=== PATIENT | male | born 1995 | race Caucasian/White ===

== ENCOUNTER 2017-04-30 13:24 | Emergency (ER) | payer BC, OTHER ==
[~2017-04-30] VITALS: Ht 180.3 cm; Wt 63.5 kg
[~2017-04-30 13:24] MED LIST: CPR250 PO
[2017-04-30 13:26] VITALS: TEMP 37; Ht 180.3 cm; Wt 63.5 kg
[2017-04-30] MEDS ORDERED: IBUPROFEN 200 MG TAB PO STA (13:47)
[2017-04-30] MEDS ORDERED: ACETAMINOPHEN 325 MG TAB PO STA (13:47)
--- NOTE | 2017-04-30 14:29 | DIAGNOSTIC IMAGING REPORT ---
CHEST ONE VIEW PORTABLE CLINICAL HISTORY: 21 years-old Male presenting with chest pain. TECHNIQUE: Portable upright AP view of the chest was obtained. COMPARISON: None. FINDINGS: Cardiomediastinal silhouette normal. Lungs and pleural spaces clear. Osseous structures and upper abdomen normal. IMPRESSION: 1. No acute cardiopulmonary disease. Electronically signed by: Alex Joaquin M.D. 04/30/2017 2:28 PM Dictated Date/Time: 04/30/2017 2:27 PM
--- NOTE | 2017-04-30 15:05 | EMERGENCY ROOM VISIT NOTE ---
History Report prepared by Mayelaibmaco: J Carlos Meyer Under the Supervision of: Dr. Marcelino Liz M.D. First contact with patient: 13:34 Chief Complaint: RESPIRATORY PROBLEMS Stated Complaint: CHEST PAIN, SOB History of Present Illness The patient is a 21 y/o white male who presents to the ED with c/o chest pain. Pain began several years ago, worsened within the past month. Primarily on the left side of chest. "Sharp", constant pain. Worsened with movement, improved with rest. Occasional pain radiation to his left arm. No recent injury. Works at [employer] with a lot of heavy lifting. Smokes about a pack a day. No drug use. No recent long travel. Denies nausea, vomiting, or diarrhea. NKDA. Source of History: patient Onset: A month ago Position: chest (primarily left) Quality: sharp Timing: constant Modifying Factors (Worsening): movement Modifying Factors (Relieving): rest Associated Symptoms: No nausea, No vomiting, No diarrhea Note: Positive: occasional pain radiation into left arm. Review of Systems See HPI for pertinent positives and negatives. A total of ten systems were reviewed and were otherwise negative. Past Medical & Surgical Medical Problems: (1) Bronchitis (2) No Known Active Medical Problems Surgical Problems: (1) Hx of tonsillectomy Family History No pertinent family history stated. Social History Smoking Status: Current Every Day Smoker Occupation Status: employed Current/Historical Medications No Active Prescriptions or Reported Meds Allergies Coded Allergies: No Known Allergies (Unverified , NONE, 04/30/17) Physical Exam Vital Signs Date Time Temp Pulse Resp B/P (MAP) Pulse Ox O2 Delivery O2 Flow Rate FiO2 04/30/17 15:24 76 18 124/73 97 04/30/17 13:26 37.0 91 18 125/84 98 Room Air Physical Exam GENERAL: Awake, alert, well-appearing, NAD HENT: Normocephalic, atraumatic. EYES: Normal conjunctiva. Sclera non-icteric. NECK: Supple. No nuchal rigidity. FROM. RESPIRATORY: CTAB, no rhonchi, wheezing, crackles CARDIAC: RRR, no MRG ABDOMEN: Soft, NTND, BS+ MSK: No LE edema. Reproducible left chest wall tenderness without ecchymosis, crepitus or erythema. NEURO: GCS 15, CN 2-12 intact, moves all 4s on command SKIN: No rash or jaundice noted. Medical Decision & Procedures ER Provider Diagnostic Interpretation: X-ray: Per my interpretation, radiologist review. CHEST ONE VIEW PORTABLE FINDINGS: Cardiomediastinal silhouette normal. Lungs and pleural spaces clear. Osseous structures and upper abdomen normal. IMPRESSION: 1. No acute cardiopulmonary disease. Electronically signed by: Alex Joaquin M.D. Medications Administered Medications (Trade) Dose Ordered Sig/Regulo Route Start Time Stop Time Status Last Admin Dose Admin Ibuprofen (Advil Tab) 400 mg NOW STAT PO 04/30/17 13:47 04/30/17 13:49 DC 04/30/17 13:58 400 MG Acetaminophen (Tylenol Tab) 650 mg NOW STAT PO 04/30/17 13:47 04/30/17 13:49 DC 04/30/17 13:58 650 MG ECG Indication: chest pain Rate (beats per minute): 66 Rhythm: sinus with SA Findings: RBBB (incomplete), other (Normal [place]/QRS intervals. RAD. No dropped beats. ) ED Course 1336: The patient was evaluated in room C10. A complete history and physical exam was performed. 1505: I reevaluated the patient. Discussed results and discharge instructions: he verbalized understanding and agreement. The patient is ready for discharge. Medical Decision The patient is a 21 y/o white male who presents to the ED with c/o chest pain. Differential diagnosis includes but is not limited to; costochondritis, MSK pain , PE, ACS, bronchitis. Patient EKG that did show a sinus arrhythmia but otherwise no other abnormalities. Patient was informed of this finding was told to follow up with his primary care physician. Patient's pain had improved. Patient was counseled on smoking cessation. Given patient's history was likely to be cardiac. Patient is PE RC negative. His pain is most likely related either MSK pain from his employment (bronchitis related to his smoking history as it has been for a long time. Patient is given strict follow-up, discharged comfortable cautions. Patient agrees with plan of care. Patient was discharged home. Impression Primary Impression: Bronchitis Additional Impression: Sinus arrhythmia seen on electrocardiogram Scribe Attestation The scribe's documentation has been prepared under my direction and personally reviewed by me in its entirety. I confirm that the note above accurately reflects all work, treatment, procedures, and medical decision making performed by me. Departure Information Dispostion Home / Self-Care Prescriptions No Active Prescriptions or Reported Meds Referrals No Doctor, Assigned (PCP) Patient Instructions ED Chest Wall Pain [facility] , ED Smoking Cessation, [facility] Additional Instructions Please follow up with her primary care physician for continued monitoring and care. Please return to the emergency department if worsening symptoms. Please review the discharge pack and information repeat smoking cessation tips. Problem Qualifiers
[2017-04-30 15:24] VITALS: BP 124/73; PULSE 76; O2SAT 97
== END 2017-04-30 15:27 | disposition home or self-care (01) ==
LOC: C.EDB 13:26 → C.EDC 15:27
DX: J40 Bronchitis, not specified as acute or chronic (principal); I49.8 Other specified cardiac arrhythmias; F17.210 Nicotine dependence, cigarettes, uncomplicated

== ENCOUNTER 2017-05-19 11:24 | Emergency (ER) | payer BC, OTHER ==
[~2017-05-19] VITALS: Ht 180.3 cm; Wt 66.4 kg
[2017-05-19 11:29] VITALS: TEMP 36.7; Ht 180.3 cm; Wt 66.4 kg
[2017-05-19 12:06] VITALS: O2SAT 98
--- NOTE | 2017-05-19 12:30 | DIAGNOSTIC IMAGING REPORT ---
CHEST ONE VIEW PORTABLE CLINICAL HISTORY: 21 years-old Male presenting with chest pain. TECHNIQUE: Portable upright AP view of the chest was obtained. COMPARISON: 04/30/2017. FINDINGS: Cardiomediastinal silhouette normal. Lungs and pleural spaces clear. Osseous structures normal. Upper abdomen normal. IMPRESSION: 1. No acute cardiopulmonary disease. Electronically signed by: Alex Joaquin M.D. 05/19/2017 12:28 PM Dictated Date/Time: 05/19/2017 12:27 PM
[2017-05-19 12:39] LABS: HEMATOCRIT 45.4 % (42-52); MEAN CELL VOLUME 90.6 fL (80-100); MEAN CORPUSCULAR HEMOGLOBIN 30.7 pg (25-34); MEAN CORPUSCULAR HGB CONC 33.9 g/dl (32-36); PLATELET COUNT 209 K/uL (130-400); RED BLOOD COUNT 5.01 M/uL (4.7-6.1); WHITE BLOOD COUNT 7.05 K/uL (4.8-10.8)
[2017-05-19 12:51] LABS: PARTIAL THROMBOPLASTIN RATIO 1.1; PROTHROMBIN TIME (PATIENT) 10.9 SECONDS (9.0-12.0)
[2017-05-19 13:08] LABS: BUN/CREATININE RATIO 9.7 (10-20); CALCIUM 8.7 mg/dl (8.5-10.1); CREATININE 1.1 mg/dl (0.60-1.40)
[2017-05-19 13:13] LABS: ALB/GLOB RATIO 1.4 (0.9-2); CKMB/CK RATIO 0.6 (0-3.0)
[2017-05-19] MEDS ORDERED: ATV/1 PO (13:42)
--- NOTE | 2017-05-19 13:43 | EMERGENCY ROOM VISIT NOTE ---
History First contact with patient: 13:09 Chief Complaint: CARDIAC ASSESSMENT Stated Complaint: CHEST PAIN;NUMBNESS IN LEFT ARM;SOB Nursing Triage Summary: Relates that he gets chest pain while at work. 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 Describes the chest pain as "someone taking a knife and stabbing it in my chest. It can last a few minutes or hours and it will just stop and go away." He relates that he coughs with the chest pain. He is a smoker and he relates that he has cut back to at the most "5 per day". He feels the pain goes away with rest and a lot of the pain goes with lieing down. Chest pain makes him short of breath. Nauseated with the events. Vomited on his way in to the ER. He relates that he had [employer] before arrival and he vomited it back up. History of Present Illness The patient is a 21 year old male who presents to the Emergency Room with complaints of chest pain. The patient states that he has had similar symptoms intermittently over the last several years. The patient states that the beginning of the month was the first time he was seen for it. The patient states that he develops pain in his chest. He states it is associated with shortness of breath and occasional numbness and tingling in his arm. He describes it as sharp and pressure-like. He states that his pain is 6/10 at its worst. He states that it lasts a few minutes to an hour. He states that it is resolved when he tries to relax. He states he has had some nausea and threw up today but denies any abdominal pain. He denies any personal history of cardiac disease. He states that his father has had heart trouble but it has been related to stress. He states he does have a history of anxiety. He denies any falls or injuries. He had an EKG and chest x-ray beginning of the month. Review of Systems A 10 system review of systems was completed with positives and pertinent negatives listed in the HPI. Past Medical/Surgical History Medical Problems: (1) Bronchitis (2) No Known Active Medical Problems Surgical Problems: (1) Hx of tonsillectomy Social History Smoking Status: Current Every Day Smoker Housing Status: lives with family Occupation Status: employed Current/Historical Medications Scheduled PRN Lorazepam (Ativan), 1 TAB PO Q8 PRN for Anxiety/Agitation Physical Exam Vital Signs Date Time Temp Pulse Resp B/P (MAP) Pulse Ox O2 Delivery O2 Flow Rate FiO2 05/19/17 14:10 58 20 127/79 99 05/19/17 13:18 66 20 129/72 98 Room Air 05/19/17 12:13 70 20 130/76 98 Room Air 05/19/17 12:06 98 Room Air 05/19/17 11:46 83 05/19/17 11:43 97 Room Air 05/19/17 11:29 36.7 86 16 137/84 96 Room Air Pain Rating (0-10): 5.0 Physical Exam VITALS: Vitals are noted on the nurse's note and reviewed by myself. Vital signs stable. GENERAL: This is a 21-year-old male, in no acute distress, nondiaphoretic, well- developed well-nourished. SKIN: The skin was without rashes, erythema, edema, or bruising. There is no tenting of the skin. Capillary reflex less than 2 seconds. HEAD: Normocephalic atraumatic. EARS: External auditory canals clear, tympanic membranes pearly serrano without erythema or effusion bilaterally. EYES: Pupils equal round and reactive to light and accommodation. Conjunctivae without injection, sclerae without icterus. Extraocular movements intact. NOSE: Patent, turbinates without inflammation or discharge. No sinus tenderness. MOUTH: Mucous membranes moist. Tonsils are not enlarged. Pharynx without erythema or exudate. Uvula midline. Airway patent. Tongue does not deviate. NECK: Supple without nuchal rigidity. No lymphadenopathy. No thyromegaly. Cervical spine is nontender. No JVD. HEART: Regular rate and rhythm without murmurs gallops or rubs. LUNGS: Clear to auscultation bilaterally without wheezes, rales or rhonchi. No retractions or accessory muscle use. ABDOMEN: Positive bowel sounds x 4. Soft, nontender, without masses or organomegaly. Singleton sign negative. MUSCULOSKELETAL: No muscle atrophy, erythema, or edema noted. Full range of motion in all extremities. Normal gait. Strength 5/5 throughout. NEURO: Patient was alert and oriented to person place and time. Medical Decision & Procedures ER Provider Diagnostic Interpretation: CHEST ONE VIEW PORTABLE CLINICAL HISTORY: 21 years-old Male presenting with chest pain. TECHNIQUE: Portable upright AP view of the chest was obtained. COMPARISON: 04/30/2017. FINDINGS: Cardiomediastinal silhouette normal. Lungs and pleural spaces clear. Osseous structures normal. Upper abdomen normal. IMPRESSION: 1. No acute cardiopulmonary disease. Laboratory Results 05/19/17 12:02 05/19/17 12:02 Test 05/19/17 12:02 05/19/17 12:24 Red Blood Count 5.01 M/uL (4.7-6.1) Mean Corpuscular Volume 90.6 fL (80-100) Mean Corpuscular Hemoglobin 30.7 pg (25-34) Mean Corpuscular Hemoglobin Concent 33.9 g/dl (32-36) RDW Standard Deviation 42.8 fL (36.4-46.3) RDW Coefficient of Variation 12.9 % (11.5-14.5) Mean Platelet Volume 11.0 fL (7.4-10.4) Prothrombin Time 10.9 SECONDS (9.0-12.0) Prothromb Time International Ratio 1.0 (0.9-1.1) Activated Partial Thromboplast Time 27.3 SECONDS (21.0-31.0) Partial Thromboplastin Ratio 1.1 Anion Gap 6.0 mmol/L (3-11) Est Creatinine Clear Calc Drug Dose 98.1 ml/min Estimated GFR () 109.1 Estimated GFR (Non- 94.1 BUN/Creatinine Ratio 9.7 (10-20) Calcium Level 8.7 mg/dl (8.5-10.1) Total Bilirubin 0.4 mg/dl (0.2-1) Aspartate Amino Transf (AST/SGOT) 10 U/L (15-37) Alanine Aminotransferase (ALT/SGPT) 21 U/L (12-78) Alkaline Phosphatase 110 U/L (45-117) Total Creatine Kinase 140 U/L (39-308) Creatine Kinase MB 0.9 ng/ml (0.5-3.6) Creatine Kinase MB Ratio 0.6 (0-3.0) Total Protein 6.6 gm/dl (6.4-8.2) Albumin 3.8 gm/dl (3.4-5.0) Globulin 2.8 gm/dl (2.5-4.0) Albumin/Globulin Ratio 1.4 (0.9-2) Bedside Troponin I < 0.030 ng/ml (0-0.045) Procedure The patient was monitored on a manager cardiac. They maintained a normal sinus rhythm without ectopy. ECG Indication: chest pain Rate (beats per minute): 86 Rhythm: normal sinus Findings: no acute ischemic change Change: no significant change ED Course The patient was seen and examined. Previous visits were reviewed. The patient does not have a fever or leukocytosis. He does not have any significant electrolyte abnormality. Troponin was not elevated. INR was 1.0. EKG does not reveal any acute arrhythmia or ischemia. Chest x-ray does not reveal any acute abnormality The patient has had these symptoms intermittently for the last several years. It is not significantly different but he decided to be evaluated for them. He was seen here at the beginning of the month and again today. The patient develops chest pain, tingling, trouble breathing and states it only goes away when he tries to lay down and relax. When I asked the patient about anxiety he states he does have a history of anxiety. This may be related to panic attack and anxiety. He will be given a small prescription for Ativan. Case management helped to make an appointment with a family doctor for follow-up for possible Holter monitor and/or echocardiogram as indicated. He should return to the ER with any worsening symptoms. The case was discussed with Dr. Hassan who agrees with the assessment and treatment plan Medical Decision DIFFERENTIAL DIAGNOSIS: Aortic dissection, myocarditis, pericarditis, cervical disc disease, costochondritis, herpes zoster, rib fracture, pleuritis, pneumonia , pulmonary embolus, tension pneumothorax, anxiety disorder, somatoform disorder , choledocholithiasis, status, esophagitis, esophageal spasm, esophageal reflux , esophageal rupture, pancreatitis, peptic ulcer disease, cardiac ischemia, ST elevation NH, acute coronary syndrome, arrhythmia, coronary artery vasospasm. vavular heart disease, coronary artery disease, among others. Medication Reconcilliation Current Medication List: was personally reviewed by me Blood Pressure Screening Patient's blood pressure: Elevated blood pressure Blood pressure disposition: Referred to PCP Impression Primary Impression: Precordial chest pain Additional Impression: Anxiety Departure Information Dispostion Home / Self-Care Condition GOOD Prescriptions Lorazepam (ATIVAN) 1 Mg Tab 1 TAB PO Q8 Y for Anxiety/Agitation, #9 TAB Prov: Audrey Raya PA-C 05/19/17 Referrals No Doctor, Assigned (PCP) Forms IMPORTANT VISIT INFORMATION, Work Instructions Return To Work: 1 day Patient Instructions Anxiety Body Response, ED Chest Pain NonCardiac, Replaced By [facility] Additional Instructions Try the Ativan only as needed for severe symptoms Follow-up with the family doctor for further evaluation and potential outpatient testing such as Holter monitor and/or echocardiogram Return with any worsening symptoms Problem Qualifiers
[2017-05-19 14:10] VITALS: BP 127/79; PULSE 58; O2SAT 99
== END 2017-05-19 14:12 | disposition home or self-care (01) ==
LOC: C.EDB 11:25 → C.EDA 14:12
DX: R07.2 Precordial pain (principal); F41.9 Anxiety disorder, unspecified; F17.210 Nicotine dependence, cigarettes, uncomplicated